=== PATIENT | male | born 1970 | race Caucasian/White ===

== ENCOUNTER 2018-09-10 13:33 | Observation (INO) ==
[2018-09-10] MEDS ORDERED: Isovue-370 500 ML BOTTLE IVP ONE ×2 (13:53→14:35)
[2018-09-10] MEDS ORDERED: Nitroglycerin 0.4 MG TAB.SUBL SL PRN (13:59)
[2018-09-10 14:17] LABS: Basophils # 0.1 K/mcL (0.0-0.2); Basophils % 0.6 %; Eosinophils # 0.2 K/mcL (0.0-0.6); Eosinophils % 2.4 %; Hematocrit 47.3 % (37.5-50.1); Hemoglobin 15.9 g/dL (12.9-16.9); Immature Granulocytes % 0.6 % (0-4); Lymphocytes # 2.4 K/mcL (0.6-4.6); Lymphocytes % 23.5 %; Mean Corpuscular HGB Conc 33.6 g/dL (31.6-35.5); Mean Corpuscular Hemoglobin 28.5 pg (28.0-33.3); Mean Corpuscular Volume 84.8 fL (83.0-100.0); Mean Platelet Volume 10.4 fL (9.4-12.4); Monocytes # 1.1 K/mcL (0.0-1.3); Monocytes % 10.9 %; Neutrophils # 6.3 K/mcL (1.6-8.9); Platelet Count 305 K/mcL (140-400); Red Blood Count 5.58 M/mcL (4.19-5.50); Red Cell Distribution Width 12.3 % (11.5-14.5)
[2018-09-10 14:23] LABS: Prothrombin Time 10.7 Seconds (9.4-12.1)
[2018-09-10 14:25] LABS: Activated Partial Thrombo Time 28.6 Seconds (26.0-36.0)
[2018-09-10 14:36] LABS: BUN/Creatinine Ratio 19 (6-26); Blood Urea Nitrogen 16 mg/dL (6-20); Calcium 10.5 mg/dL (8.6-10.3); Carbon Dioxide 28 mEq/L (23-29); Chloride 96 mEq/L (98-107); Glucose 224 mg/dL (70-105); Osmolality,Calculated 290 (280-300); Potassium 3.8 mEq/L (3.5-5.1); Sodium 136 mEq/L (136-145); Troponin I < 0.03 ng/mL (< 0.04); eGFR For Non-African Americans > 60 (> 60)
--- NOTE | 2018-09-10 14:49 | Emergency Department Note ---
Disposition Clinical Impression: Chest pain Disposition: Admitted As Inpatient Condition: Good Referrals: Daniel Mcnally DO [Primary Care Provider] - Forms: ED Satisfaction Letter Time of Disposition: 16:02 Chest Pain HPI - General Chief Complaint: ED Chest Pain Stated Complaint: Weakness,Chest Heaviness,HOLT,Jaw tightness Time Seen by Provider: 09/10/18 13:40 Source: patient Mode of arrival: ambulatory Limitations: no limitations Vital Signs Reviewed: Yes Nursing Notes Reviewed: Yes - History of Present Illness HPI Narrative: Patient presenting to the ED with the chief complaint of generalized weakness and chest pain. Patient reports this is been ongoing for several months, but is getting progressively worse. States the pain is more of a heaviness and discomfort in the center of his chest. He sometimes feels like his left arm gets weak. He gets very lightheaded like he is going to pass out and states he has fallen multiple times. He does get nauseated and sometimes diaphoretic. Denies any previous history of heart disease. He states that he was at graduation today in [place] and was walking up the stairs and suddenly became very ill and had worse pain than usual. States this was around 10 AM. States he still does not feel quite back to normal, but the pain has subsided. He denies any fever or chills. Denies any abdominal pain. No lower extremity numbness or weakness. No urinary complaints Severity scale (1-10): 5 - Related Data Previous Rx's Medication Instructions Recorded Acetaminophen/Butalbital/Caffe 1 each PO Q6HR #20 tablet 02/12/17 [Fioricet] Ondansetron ODT [Zofran ODT] 4 mg SL Q8HR #10 tab.rapdis 02/12/17 Doxycycline 100 mg PO BID #20 capsule 02/26/18 Mupirocin 1 gm TP BID #1 oin.pf.gracia 02/26/18 Allergies Allergy/AdvReac Type Severity Reaction Status Date / Time No Known Allergies Allergy Verified 02/12/17 17:54 Review of Systems: As reviewed in the HPI. All other systems reviewed are negative or normal. Chest Pain PMH - Past Medical History Medical history: Reports: diabetes, hyperlipidemia, hypertension Psychiatric history: Reports: no psych history - Social History Smoking Status: Never smoker Alcohol use: Reports: none Drug use: Reports: none Physical Exam CONSTITUTIONAL: [well appearing, alert and in no acute distress] EYES: [EOMI, clear conjunctiva, PERRLA] HENT: [Normocephalic, atraumatic, moist mucus membranes, normal oropharynx] NECK: [normal inspection, full ROM, trachea midline, no obvious swelling] PULMONARY: [normal lung sounds bilaterally, normal chest rise and fall, no respiratory distress or stridor, no wheezes, no rales, no rhonchi CARDIOVASCULAR: [Tachycardic rate, regular rhythm, normal heart sounds, no murmurs, distal extremities are warm and well perfused] GASTROINSTESTINAL: [soft, non-tender, non-rigid, non-distended, no guarding, no rebound, normal bowel sounds] GENITOURINARY/RECTAL: [deferred] NEUROLOGIC: [Alert, oriented x3, normal speech, moves all extremities] EXTREMITIES: [Normal inspection, full ROM, no tenderness, no pedal edema, normal capillary refill] MUSCULOSKELETAL: [no gross deformities, atraumatic] SKIN: [No cyanosis, no diaphoresis, normal color, warm, no rash] PSYCHIATRIC: [normal mood and affect] - General Limitations: no limitations General appearance: alert Course Course Narrative: Patient's workup does not show any acute abnormalities. He has multiple pulmonary nodules with a broad differential. However, patient will need to be admitted for chest pain rule out and further cardiac testing due to his heart score. Vital Signs Temperature 97.9 F 09/10/18 13:40 Pulse Rate 121 09/10/18 13:40 Respiratory Rate 16 09/10/18 13:40 Blood Pressure 158/99 09/10/18 13:40 O2 Sat by Pulse Oximetry 96 09/10/18 13:40 Temperature 97.9 F 09/10/18 13:40 Pulse Rate 117 09/10/18 15:15 Respiratory Rate 18 09/10/18 15:15 Blood Pressure 118/74 09/10/18 15:15 O2 Sat by Pulse Oximetry 93 09/10/18 15:15 Oxygen Delivery Oxygen Delivery Room Air Chest Pain - Medical Records Medical records reviewed: Yes I reviewed the patient's medical records. - Lab Data Lab results reviewed: Yes I reviewed the patient's lab results. Result diagrams: 09/10/18 13:41 09/10/18 13:41 Lab Results 0509/10/18 09/10/18 Range/Units 13:41 13:41 13:41 WBC 10.1 (4.3-11.1) K/mcL RBC 5.58 H (4.19-5.50) M/mcL Hgb 15.9 (12.9-16.9) g/dL Hct 47.3 (37.5-50.1) % MCV 84.8 (83.0-100.0) fL MCH 28.5 (28.0-33.3) pg MCHC 33.6 (31.6-35.5) g/dL RDW 12.3 (11.5-14.5) % Plt Count 305 (140-400) K/mcL MPV 10.4 (9.4-12.4) fL Immature Gran % 0.6 (0-4) % Seg Neutrophils % 62.0 % Lymphocytes % 23.5 % Monocytes % 10.9 % Eosinophils % 2.4 % Basophils % 0.6 % Neutrophils # 6.3 (1.6-8.9) K/mcL Lymphocytes # 2.4 (0.6-4.6) K/mcL Monocytes # 1.1 (0.0-1.3) K/mcL Eosinophils # 0.2 (0.0-0.6) K/mcL Basophils # 0.1 (0.0-0.2) K/mcL PT 10.7 (9.4-12.1) Seconds INR 1.0 APTT 28.6 (26.0-36.0) Seconds Sodium (136-145) mEq/L Potassium (3.5-5.1) mEq/L Chloride (98-107) mEq/L Carbon Dioxide (23-29) mEq/L BUN (6-20) mg/dL Creatinine (0.70-1.30) mg/dL Est GFR ( Amer) (> 60) Est GFR (Non-Af Amer) (> 60) BUN/Creatinine Ratio (6-26) Glucose (70-105) mg/dL Calculated Osmolality (280-300) Calcium (8.6-10.3) mg/dL Troponin I (< 0.04) ng/mL B-Natriuretic Peptide 8 (Less than 100) pg/mL Urine Color (Yellow) Urine Clarity (Clear) Urine pH (5.0-8.0) pH Units Ur Specific [place] (1.010-1.025) Urine Protein (Neg-Trace) mg/dL Urine Glucose (UA) (Normal) mg/dL Urine Ketones (Negative) mg/dL Urine Blood (Negative) Urine Nitrite (Negative) Urine Bilirubin (Negative) Urine Urobilinogen (Normal) mg/dL Ur Leukocyte Esterase (Negative) Ur Culture Indicated? (NO) 09/10/18 09/10/18 Range/Units 13:41 15:00 WBC (4.3-11.1) K/mcL RBC (4.19-5.50) M/mcL Hgb (12.9-16.9) g/dL Hct (37.5-50.1) % MCV (83.0-100.0) fL MCH (28.0-33.3) pg MCHC (31.6-35.5) g/dL RDW (11.5-14.5) % Plt Count (140-400) K/mcL MPV (9.4-12.4) fL Immature Gran % (0-4) % Seg Neutrophils % % Lymphocytes % % Monocytes % % Eosinophils % % Basophils % % Neutrophils # (1.6-8.9) K/mcL Lymphocytes # (0.6-4.6) K/mcL Monocytes # (0.0-1.3) K/mcL Eosinophils # (0.0-0.6) K/mcL Basophils # (0.0-0.2) K/mcL PT (9.4-12.1) Seconds INR APTT (26.0-36.0) Seconds Sodium 136 (136-145) mEq/L Potassium 3.8 (3.5-5.1) mEq/L Chloride 96 L (98-107) mEq/L Carbon Dioxide 28 (23-29) mEq/L BUN 16 (6-20) mg/dL Creatinine 0.86 (0.70-1.30) mg/dL Est GFR ( Amer) > 60 (> 60) Est GFR (Non-Af Amer) > 60 (> 60) BUN/Creatinine Ratio 19 (6-26) Glucose 224 H (70-105) mg/dL Calculated Osmolality 290 (280-300) Calcium 10.5 H (8.6-10.3) mg/dL Troponin I < 0.03 (< 0.04) ng/mL B-Natriuretic Peptide (Less than 100) pg/mL Urine Color Yellow (Yellow) Urine Clarity Clear (Clear) Urine pH 5.5 (5.0-8.0) pH Units Ur Specific [place] 1.026 H (1.010-1.025) Urine Protein Negative (Neg-Trace) mg/dL Urine Glucose (UA) >=1000 H (Normal) mg/dL Urine Ketones Trace H (Negative) mg/dL Urine Blood Negative (Negative) Urine Nitrite Negative (Negative) Urine Bilirubin Negative (Negative) Urine Urobilinogen Normal (Normal) mg/dL Ur Leukocyte Esterase Negative (Negative) Ur Culture Indicated? NO (NO) - Radiology Data Radiology results reviewed: Yes I reviewed the patient's radiology results. - EKG Data EKG attestation: Yes I reviewed and interpreted this EKG. EKG results narrative: Sinus tach, rate 122, left axis deviation, no acute ischemic change Heart Score - Score History: Moderately Suspicious EKG: Non Specific repolarisation Disturbance Age: 45-65 Risk Factors: Equal/Greater than 3 risk factor or history of atherosclerotic disease Troponin: Less than normal limit HEART Score Total: 5
[2018-09-10 15:11] LABS: Bilirubin,Urine Negative (Negative); Blood,Urine Negative (Negative); Clarity,Urine Clear (Clear); Color,Urine Yellow (Yellow); Glucose,Urine (UA) >=1000 mg/dL (Normal); Ketones,Urine Trace mg/dL (Negative); Leukocyte Esterase,Urine Negative (Negative); Nitrite,Urine Negative (Negative); PH,Urine 5.5 pH Units (5.0-8.0); Protein,Urine Negative (Neg-Trace); Specific Gravity,Urine 1.026 (1.010-1.025); Urobilinogen,Urine Normal (Normal)
--- NOTE | 2018-09-10 17:08 | Emergency Department Note ---
Disposition Clinical Impression: Chest pain Disposition: Admitted As Inpatient Condition: Good Time of Disposition: 17:08 General Adult HPI - General Chief complaint: ED Chest Pain Stated complaint: Weakness,Chest Heaviness,HOLT,Jaw tightness Time Seen by Provider: 09/10/18 13:40 Source: patient Mode of arrival: ambulatory Limitations: no limitations - History of Present Illness Pain Scale: 4 - Related Data Previous Rx's Medication Instructions Recorded Acetaminophen/Butalbital/Caffe 1 each PO Q6HR #20 tablet 02/12/17 [Fioricet] Ondansetron ODT [Zofran ODT] 4 mg SL Q8HR #10 tab.rapdis 02/12/17 Doxycycline 100 mg PO BID #20 capsule 02/26/18 Mupirocin 1 gm TP BID #1 oin.pf.gracia 02/26/18 Allergies Allergy/AdvReac Type Severity Reaction Status Date / Time No Known Allergies Allergy Verified 02/12/17 17:54 Past Medical History - Past Medical History Medical history: Reports: diabetes, hyperlipidemia, hypertension Psychiatric history: Reports: no psych history - Social History Smoking Status: Never smoker Smokeless Tobacco Status: No Alcohol use: Reports: none Drug use: Reports: none Physical Exam - General Limitations: no limitations General appearance: alert Course Vital Signs Temperature 97.9 F 09/10/18 13:40 Pulse Rate 121 09/10/18 13:40 Respiratory Rate 16 09/10/18 13:40 Blood Pressure 158/99 09/10/18 13:40 O2 Sat by Pulse Oximetry 96 09/10/18 13:40 Temperature 97.9 F 09/10/18 13:40 Pulse Rate 120 09/10/18 16:19 Respiratory Rate 19 09/10/18 16:19 Blood Pressure 113/57 09/10/18 16:19 O2 Sat by Pulse Oximetry 94 09/10/18 16:19 Oxygen Delivery Oxygen Delivery Room Air Medical Decision Making - Lab Data Result diagrams: 09/10/18 13:41 09/10/18 13:41 Lab Results 09/10/18 09/10/18 09/10/18 Range/Units 13:41 13:41 13:41 WBC 10.1 (4.3-11.1) K/mcL RBC 5.58 H (4.19-5.50) M/mcL Hgb 15.9 (12.9-16.9) g/dL Hct 47.3 (37.5-50.1) % MCV 84.8 (83.0-100.0) fL MCH 28.5 (28.0-33.3) pg MCHC 33.6 (31.6-35.5) g/dL RDW 12.3 (11.5-14.5) % Plt Count 305 (140-400) K/mcL MPV 10.4 (9.4-12.4) fL Immature Gran % 0.6 (0-4) % Seg Neutrophils % 62.0 % Lymphocytes % 23.5 % Monocytes % 10.9 % Eosinophils % 2.4 % Basophils % 0.6 % Neutrophils # 6.3 (1.6-8.9) K/mcL Lymphocytes # 2.4 (0.6-4.6) K/mcL Monocytes # 1.1 (0.0-1.3) K/mcL Eosinophils # 0.2 (0.0-0.6) K/mcL Basophils # 0.1 (0.0-0.2) K/mcL PT 10.7 (9.4-12.1) Seconds INR 1.0 APTT 28.6 (26.0-36.0) Seconds Sodium (136-145) mEq/L Potassium (3.5-5.1) mEq/L Chloride (98-107) mEq/L Carbon Dioxide (23-29) mEq/L BUN (6-20) mg/dL Creatinine (0.70-1.30) mg/dL Est GFR ( Amer) (> 60) Est GFR (Non-Af Amer) (> 60) BUN/Creatinine Ratio (6-26) Glucose (70-105) mg/dL Calculated Osmolality (280-300) Calcium (8.6-10.3) mg/dL Troponin I (< 0.04) ng/mL B-Natriuretic Peptide 8 (Less than 100) pg/mL Urine Color (Yellow) Urine Clarity (Clear) Urine pH (5.0-8.0) pH Units Ur Specific [place] (1.010-1.025) Urine Protein (Neg-Trace) mg/dL Urine Glucose (UA) (Normal) mg/dL Urine Ketones (Negative) mg/dL Urine Blood (Negative) Urine Nitrite (Negative) Urine Bilirubin (Negative) Urine Urobilinogen (Normal) mg/dL Ur Leukocyte Esterase (Negative) Ur Culture Indicated? (NO) 09/10/18 09/10/18 Range/Units 13:41 15:00 WBC (4.3-11.1) K/mcL RBC (4.19-5.50) M/mcL Hgb (12.9-16.9) g/dL Hct (37.5-50.1) % MCV (83.0-100.0) fL MCH (28.0-33.3) pg MCHC (31.6-35.5) g/dL RDW (11.5-14.5) % Plt Count (140-400) K/mcL MPV (9.4-12.4) fL Immature Gran % (0-4) % Seg Neutrophils % % Lymphocytes % % Monocytes % % Eosinophils % % Basophils % % Neutrophils # (1.6-8.9) K/mcL Lymphocytes # (0.6-4.6) K/mcL Monocytes # (0.0-1.3) K/mcL Eosinophils # (0.0-0.6) K/mcL Basophils # (0.0-0.2) K/mcL PT (9.4-12.1) Seconds INR APTT (26.0-36.0) Seconds Sodium 136 (136-145) mEq/L Potassium 3.8 (3.5-5.1) mEq/L Chloride 96 L (98-107) mEq/L Carbon Dioxide 28 (23-29) mEq/L BUN 16 (6-20) mg/dL Creatinine 0.86 (0.70-1.30) mg/dL Est GFR ( Amer) > 60 (> 60) Est GFR (Non-Af Amer) > 60 (> 60) BUN/Creatinine Ratio 19 (6-26) Glucose 224 H (70-105) mg/dL Calculated Osmolality 290 (280-300) Calcium 10.5 H (8.6-10.3) mg/dL Troponin I < 0.03 (< 0.04) ng/mL B-Natriuretic Peptide (Less than 100) pg/mL Urine Color Yellow (Yellow) Urine Clarity Clear (Clear) Urine pH 5.5 (5.0-8.0) pH Units Ur Specific [place] 1.026 H (1.010-1.025) Urine Protein Negative (Neg-Trace) mg/dL Urine Glucose (UA) >=1000 H (Normal) mg/dL Urine Ketones Trace H (Negative) mg/dL Urine Blood Negative (Negative) Urine Nitrite Negative (Negative) Urine Bilirubin Negative (Negative) Urine Urobilinogen Normal (Normal) mg/dL Ur Leukocyte Esterase Negative (Negative) Ur Culture Indicated? NO (NO) Attestation Statement - Attestation Attestation: I examined this patient and my medical decision-making was reviewed with the Resident Physician. I agree with the documented findings, disposition and treatment plan as described except to the extent set forth below. 47 year old male presents to the ED with complaints of chest pain and weakness and palpitations with moderate heart score. CTA chest shows mulitple pilmonary noduels and HCT is othewise negative. We will admit to medicine for CP r/o ACS workup, negative trop, non ishcemic ekg although sinus tachycardia has improved from 120 to 105.
[2018-09-10] MEDS ORDERED: Naloxone 0.4 MG/ML INJ IVP PRN (17:10)
--- NOTE | 2018-09-10 17:12 | Internal Med History&Physical ---
Date of Encounter: 09/10/18 Time of Encounter: 17:00 Internal Medicine - H&P: HPI Chief complaint: Chest heaviness/fluttering Admitted From: Home Plans for Post Hospital Care: Home History of present illness: Patient is a 47-year-old male with past medical history significant for uncontrolled diabetes (hemoglobin A1c 10) hypertension, diabetes, hyperlipidemia, former [id number] smoker (quit 2011) and [employer] pacemaker (2011) who presents to the ER due to chest heaviness/palpitations. Patient reports a two-month history of intermittent fluttering in his chest which has progressively gotten worse in the last week. Patient reports that today while walking up steps at a graduation of experiencing substernal chest heaviness which radiated down his left arm with associated symptoms of nausea and shortness of breath. Patient reports that exertion made chest pressure worse and nothing gave any relief. Patient was concerned so decided come to the ER for evaluation. In the ER, first set of troponins were negative. He was found to have sinus tachycardia. Patient will be admitted to medical surgical observation unit for ACS rule out. Past Med Surg Social Fam HX - Past Medical History Medical history: diabetes, hyperlipidemia, hypertension Psychiatric history: no psych history - Past Surgical History Additional surgical history: fusion surgery on back, cysts removed from back, right wrist surgery - Social History Smoking Status: Never smoker Smokeless Tobacco Status: No Alcohol use: none Drug use: none - Additional Family History Additional family history: Paternal/maternal grandparents coronary artery disease Internal Medicine - H&P: Meds Acetaminophen/Butalbital/Caffe [Fioricet] 1 each PO Q6HR #20 tablet 02/12/17 [Rx] Ondansetron ODT [Zofran ODT] 4 mg SL Q8HR #10 tab.rapdis 02/12/17 [Rx] Doxycycline 100 mg PO BID #20 capsule 02/26/18 [Rx] Mupirocin 1 gm TP BID #1 oin.pf.gracia 02/26/18 [Rx] Allergy/AdvReac Type Severity Reaction Status Date / Time No Known Allergies Allergy Verified 02/12/17 17:54 All Systems PM: A 10-system review of systems was performed and is negative for pertinent f indings except as documented above in the HPI. - Constitutional Vitals: Temp Pulse Resp BP Pulse Ox 97.9 F 120 19 113/57 94 05/25/19 13:40 09/10/18 16:19 09/10/18 16:19 09/10/18 16:19 09/10/18 16:19 Exam: General appearance: Present: A&O X 3, no acute distress - Head Head exam: Present: normocephalic - Eye Eye exam: Present: normal appearance - ENT ENT exam: Present: mucous membranes moist - Respiratory Respiratory exam: Present: CTAB. Absent: accessory muscle use, rales, rhonchi, wheezes - Cardiovascular Cardiovascular exam: Present: Tachycardia but no murmurs rubs or gallops - GI/Abdominal GI/Abdominal exam: Present: normal bowel sounds, soft, no peritoneal signs. Absent: distended, tenderness - Extremities Exam Extremities exam: Absent: pedal edema - Neurological Exam Neurological exam: Present: alert, oriented X3, no focal deficits. Absent: altered - Psychiatric Psychiatric exam: -normal mood Skin exam: -normal color Internal Med - H&P Results - Labs CBC & Chem 7: 09/10/18 13:41 09/10/18 13:41 Labs: Short CBC 09/10/18 Range/Units 13:41 WBC 10.1 (4.3-11.1) K/mcL Hgb 15.9 (12.9-16.9) g/dL Hct 47.3 (37.5-50.1) % Plt Count 305 (140-400) K/mcL Neutrophils # 6.3 (1.6-8.9) K/mcL BMP 09/10/18 13:41 Sodium 136 Potassium 3.8 Chloride 96 L Carbon Dioxide 28 BUN 16 Creatinine 0.86 Glucose 224 H Calcium 10.5 H Cardiac Enzymes 09/10/18 Range/Units 13:41 Troponin I < 0.03 (< 0.04) ng/mL Urine 09/10/18 Range/Units 15:00 Urine Color Yellow (Yellow) Urine Clarity Clear (Clear) Urine pH 5.5 (5.0-8.0) pH Units Ur Specific [place] 1.026 H (1.010-1.025) Urine Protein Negative (Neg-Trace) mg/dL Urine Glucose (UA) >=1000 H (Normal) mg/dL - Impressions ITS Impressions Chest X-Ray 09/10/18 13:53 IMPRESSION: No acute cardiopulmonary process. D/ / 09/10/2018 14:26:29 Jerry Moreno MD / garo Interpreting Provider: Jerry Moreno MD Chest CTA 09/10/18 13:54 IMPRESSION: 1. No evidence for pulmonary embolism. 2. Innumerable subcentimeter bilateral pulmonary nodules throughout the lungs measuring up to 6 mm in greatest size. There is a broad differential diagnosis for diffuse pulmonary nodularity. Several differential considerations would include sarcoidosis, silicosis, and hypersensitivity pneumonitis amongst other etiologies. RECOMMENDATIONS: Fleischner Society guidelines for follow-up and management of incidentally detected pulmonary nodules: Multiple Solid Nodules: Nodule size equals 6-8 mm In a low-risk patient, CT at 3-6 months, then consider CT at 18-24 months. In a high-risk patient, CT at 3-6 months, then CT at 18-24 months. - Low risk patients include individuals with minimal or absent history of smoking and other known risk factors. - High risk patients include individuals with a history or smoking or known risk factors. Radiology 2017 http://pubs.rsna.org/doi/full/10.1148/radiol.[email or web address] D/ / Guanako Motley MD / Guanako Motley MD Interpreting Provider: Guanako Motley MD Head CT 09/10/18 14:49 IMPRESSION: No acute intracranial abnormality. D/ / Hugh Helms MD / Hugh Helms MD Interpreting Provider: Hugh Helms MD - Assessment and Plan (1) Chest pain Current Visit: Yes Status: Acute Assessment and plan: Patient with multiple risk factors including uncontrolled diabetes (hemoglobin A1c 10) hypertension, diabetes, hyperlipidemia, former [id number] smoker (quit 2011) and [employer] pacemaker (2011) who presents to the ER due to chest heaviness/palpitations. In the ER, first set of troponins were negative. He was found to have sinus tachycardia. Will trend serial troponins and monitor on telemetry Due to [employer] pacemaker will consult cardiology for recommendations Qualifiers: Chest pain type: unspecified Qualified Code(s): R07.9 - Chest pain, unspecified (2) HTN (hypertension) Current Visit: Yes Status: Acute Assessment and plan: Continue home meds Qualifiers: Hypertension type: unspecified Qualified Code(s): I10 - Essential (primary) hypertension (3) HLD (hyperlipidemia) Current Visit: Yes Status: Acute Assessment and plan: Continue home meds Qualifiers: Hyperlipidemia type: unspecified Qualified Code(s): E78.5 - Hyperlipidemia, unspecified (4) Diabetes Current Visit: Yes Status: Acute Assessment and plan: Continue SSI Qualifiers: Chronic kidney disease stage: unspecified stage Qualified Code(s): E08.22 - Diabetes mellitus due to underlying condition with diabetic chronic kidney disease; Z79.4 - MCFP (current) use of insulin (5) DVT prophylaxis Current Visit: Yes Status: Acute Assessment and plan: Heparin subcutaneous - Time Spent With Patient Total time spent is greater than 50% in coordination of care (as documented) at patient's floor/unit and/or counseling patient:
[2018-09-10] MEDS ORDERED: *HR* Dextrose 50 % in Water (Syg) 50 ML SYRINGE IVP PRN (21:07)
[2018-09-10] MEDS ORDERED: D5% in Water 1,000 ML IVC PRN (21:07)
[2018-09-10] MEDS ORDERED: Dextrose Gel 15 GM/37.5 ML TUBE PO PRN ×2 (21:07)
[2018-09-10] MEDS: Insulin LISPRO 300 UNITS/3 ML VIAL SQ SCH (22:15)
[2018-09-10] MEDS: *HR* Heparin 5,000 UNIT/ML VIAL SQ SCH (22:17)
[2018-09-11 00:46] LABS: Basophils # 0.1 K/mcL (0.0-0.2); Basophils % 0.6 %; Eosinophils # 0.3 K/mcL (0.0-0.6); Eosinophils % 3.5 %; Hematocrit 43.6 % (37.5-50.1); Hemoglobin 14.7 g/dL (12.9-16.9); Immature Granulocytes % 0.4 % (0-4); Lymphocytes # 3.1 K/mcL (0.6-4.6); Lymphocytes % 32.7 %; Mean Corpuscular HGB Conc 33.7 g/dL (31.6-35.5); Mean Corpuscular Hemoglobin 28.3 pg (28.0-33.3); Mean Corpuscular Volume 83.8 fL (83.0-100.0); Mean Platelet Volume 10.3 fL (9.4-12.4); Monocytes # 1.1 K/mcL (0.0-1.3); Monocytes % 11.2 %; Neutrophils # 4.8 K/mcL (1.6-8.9); Platelet Count 261 K/mcL (140-400); Red Cell Distribution Width 12.3 % (11.5-14.5); Segmented Neutrophils % 51.6 %
[2018-09-11 01:06] LABS: BUN/Creatinine Ratio 19 (6-26); Blood Urea Nitrogen 16 mg/dL (6-20); Calcium 9.2 mg/dL (8.6-10.3); Carbon Dioxide 27 mEq/L (23-29); Chloride 98 mEq/L (98-107); Glucose 239 mg/dL (70-105); Osmolality,Calculated 291 (280-300); Potassium 3.2 mEq/L (3.5-5.1); Sodium 136 mEq/L (136-145); eGFR For Non-African Americans > 60 (> 60)
[2018-09-11] MEDS: *HR* Heparin 5,000 UNIT/ML VIAL SQ SCH ×3 (05:23→22:19)
[2018-09-11 06:57] LABS: Estimated Average Glucose 240 mg/dl
[2018-09-11] MEDS: Insulin LISPRO 300 UNITS/3 ML VIAL SQ SCH ×4 (08:57→21:09)
[2018-09-11] MEDS ORDERED: Acetaminophen 325 MG TABLET PO ONE (09:32)
[2018-09-11] MEDS ORDERED: Regadenoson 0.4 MG/5 ML SYRINGE IVP ONE (10:54)
--- NOTE | 2018-09-11 14:38 | Electrocardiograph Report ---
[address] [address] Test Date: 2018-09-10 Pat Name: Emile Witt Department: [id number] Room: 3B38 Gender: M Resin Shaver: : 1970 Requested By: Daniel Bey Order Number: [id number] Reading MD: David Gong Measurements Intervals [place] Rate: 122 P: 35 FL: 181 QRS: -18 QRSD: 110 T: -31 QT: 302 QTc: 431 Interpretive Statements Sinus tachycardia Diffuse artifacts Probable left atrial enlargement Low voltage, precordial leads Borderline T abnormalities, diffuse leads Electronically Signed On 09-11-2018 14:37:06 EDT by David Gong
--- NOTE | 2018-09-11 17:56 | Internal Med Progress Note ---
Hospitalist Progress Note - Encounter Date of Encounter: 09/11/18 Time of Encounter: 11:00 - Subjective Interval History: Patient is a 47-year-old male with past medical history significant for uncontrolled diabetes (hemoglobin A1c 10) hypertension, diabetes, hyperlipidemia, former [id number] smoker (quit 2011) and [employer] pacemaker (2011) who presents to the ER due to chest heaviness/palpitations. Patient still reporting some chest heaviness today. Patient's troponins were negative however he did have a positive stress test. - Exam Vitals: Temp Pulse Resp BP Pulse Ox 97.9 F 115 18 144/94 96 09/11/18 16:16 09/11/18 16:16 09/11/18 16:16 09/11/18 16:16 09/11/18 16:16 Exam: Gen.: Nonacute distress, alert and oriented 3 ENT: Mucosal membranes moist Respiratory: Lungs are clear to auscultation bilaterally without any wheezing rhonchi or rales Cardiovascular: Normal S1 and S2 regular rate rhythm no murmurs rubs or gallops Abdomen: Soft, nontender and nondistended with positive bowel sounds Extremities: No lower extremity edema Skin: Normal color - Assessment and Plan (1) Chest pain Current Visit: Yes Status: Acute Assessment and Plan: Patient with multiple risk factors including uncontrolled diabetes (hemoglobin A1c 10) hypertension, diabetes, hyperlipidemia, former [id number] smoker (quit 2011) and [employer] pacemaker (2011) who presents to the ER due to chest heaviness/palpitations. Troponins have been negative however patient found to have a positive stress test with perfusion imaging that was positive for ischemia; echocardiogram pending Cardiology consulted and patient will be made nothing by mouth in case of heart catheterization in the morning (2) HTN (hypertension) Current Visit: Yes Status: Acute Assessment and Plan: Continue home meds (3) HLD (hyperlipidemia) Current Visit: Yes Status: Acute Assessment and Plan: Continue home meds (4) Diabetes Current Visit: Yes Status: Acute Assessment and Plan: Continue SSI DVT Prophylaxis: Heparin subcutaneous - Time Spent with Patient Total time spent is greater than 50% in coordination of care (as documented) at patient's floor/unit and/or counseling patient: Internal Medicine: Result - Labs CBC & Chem 7: 09/11/18 00:14 09/11/18 00:14 Labs: Short CBC 09/11/18 Range/Units 00:14 WBC 9.4 (4.3-11.1) K/mcL Hgb 14.7 (12.9-16.9) g/dL Hct 43.6 (37.5-50.1) % Plt Count 261 (140-400) K/mcL Neutrophils # 4.8 (1.6-8.9) K/mcL BMP 09/11/18 00:14 Sodium 136 Potassium 3.2 L Chloride 98 Carbon Dioxide 27 BUN 16 Creatinine 0.84 Glucose 239 H Calcium 9.2 Cardiac Enzymes 09/10/18 09/11/18 09/11/18 Range/Units 17:38 00:14 04:35 Troponin I < 0.03 < 0.03 < 0.03 (< 0.04) ng/mL - ABG Interpretation ABG results: PT/INR, D-dimer PT 10.7 Seconds (9.4-12.1) 09/10/18 13:41 - Impressions Impressions Echocardiogram 09/11/18 12:00 Impressions: LVEF 50-55%. Normal LV chamber size, wall thickness and function. Normal left ventricular diastolic function. Normal right ventricular structure and function. No evidence of pulmonary hypertension. No significant valvular dysfunction Left Ventricular Wall Motion: Rest Echo Findings The mid inferior lateral wall was not visualized. All other wall segments showed normal motion. Findings: Study Quality * Technically adequate exam. ECG Findings * Normal sinus rhythm. Left Ventricle * LVEF 50-55%. * Normal LV chamber size, wall thickness and function. * Normal left ventricular diastolic function. Right Ventricle * Normal right ventricular structure and function. Left Atrium * Normal left atrial size. Right Atrium * Normal right atrial size. Aortic Valve * Aortic valve not well visualized. * No aortic regurgitation. * No aortic stenosis. Mitral Valve * No mitral stenosis. * Normal mitral valve structure. * Trace mitral regurgitation. Tricuspid Valve * No tricuspid stenosis. * Trace tricuspid regurgitation. * Normal tricuspid valve structure. * No evidence of pulmonary hypertension. Pulmonic Valve * Pulmonic valve not well visualized. Aorta * Normally sized aortic root. Pericardium * The pericardium appears normal. IVC * The IVC is not well evaluated. Pulmonary Artery * Pulmonary artery not well visualized. Consult Discharge Plan - Plan Referrals: Daniel Mcnally DO [Primary Care Provider] - (1) Chest pain Qualifiers: Chest pain type: unspecified Qualified Code(s): R07.9 - Chest pain, unspecified (2) HTN (hypertension) Qualifiers: Hypertension type: unspecified Qualified Code(s): I10 - Essential (primary) hypertension (3) HLD (hyperlipidemia) Qualifiers: Hyperlipidemia type: unspecified Qualified Code(s): E78.5 - Hyperlipidemia, unspecified (4) Diabetes Qualifiers: Chronic kidney disease stage: unspecified stage Qualified Code(s): E08.22 - Diabetes mellitus due to underlying condition with diabetic chronic kidney disease; Z79.4 - [facility] (current) use of insulin
[2018-09-12] MEDS: *HR* Heparin 5,000 UNIT/ML VIAL SQ SCH ×3 (05:51→20:35)
[2018-09-12] MEDS ORDERED: Acetaminophen 325 MG TABLET PO ONE (05:56)
[2018-09-12] MEDS: Insulin LISPRO 300 UNITS/3 ML VIAL SQ SCH ×4 (09:00→20:35)
--- NOTE | 2018-09-12 09:21 | Cardiology Consult Note ---
Date of Encounter: 09/12/18 Time of Encounter: 09:20 Assessment and Plan (1) Chest pain Current Visit: Yes Status: Acute Per Cardiology: Troponins negative 4. Echo showed preserved EF 50-55%, normal diastolic function, normal RV structure and function, no evidence of pulmonary hypertension, no significant valvular dysfunction. Reports history of non obstructive CAD on catheterization many years ago at outside facility prior to pacemaker insertion. Currently chest pain-free. Qualifiers: Chest pain type: unspecified Qualified Code(s): R07.9 - Chest pain, unspecified (2) Abnormal nuclear stress test Current Visit: Yes Status: Acute Per Cardiology: Non-exercise nuclear stress test showed positive for ischemia with small perfusion defect to mid inferior lateral; SDS 2. Results reviewed and discussed with patient and he prefers to proceed with catheterization. Plan for catheterization tomorrow, all questions answered. Discussed and reviewed with Dr. Lou Osuna. Discussion w patient/family: The assessment and plan as outlined above was discussed with the patient and/or family members who expressed understanding and agreement. All questions were answered. Thank you for involving us in the care of your patient. Please call with any questions. History of Present Illness Consult date: 09/12/18 Consult reason: +ST Chief complaint: CP History of present illness: Mr. Witt is a 47 year old male with a relevant past medical history of HTN, HLD, DM 2, and pacemaker. Cardiology consult for positive nuclear stress test. Past Med Surg Social Fam HX - Past Medical History Attestation: Yes The following information was validated with the patient. Source: patient, old records reviewed Medical history: diabetes, hyperlipidemia, hypertension Additional medical history: SLEEP APNEA. NUEROPATHY Psychiatric history: no psych history - Past Surgical History Surgical History: pacemaker Additional surgical history: fusion surgery on back, cysts removed from back, right wrist surgery - Social History Smoking Status: Never smoker Smokeless Tobacco Status: No Alcohol use: none Drug use: none - Family History Father Hx Family Cardiac Disorders: Yes Mother Hx Family Cardiac Disorders: Yes (HTN) Medications and Allergies Allergy/AdvReac Type Severity Reaction Status Date / Time No Known Allergies Allergy Verified 02/12/17 17:54 All Systems Review: The remainder of the systems were reviewed and are negative - Cardiovascular Cardiovascular: as per HPI Physical Examination Vital Signs, Last 4 Hours Temp Pulse Resp BP Pulse Ox 09/12/18 08:02 98.0 F 92 14 137/83 96 General: Conversant, No Apparent Distress HEENT: Atraumatic, Normocephaly, Mucus Membranes Moist Neck: No JVD, Normal carotid pulses Cardiac: Reg Rate and Rhythm, Normal S1 and S2, No Murmur Lungs: Normal Breath Sounds, No Wheeze, Rales, Rhonchi Neuro: Alert and responsive, No focal deficits noted Abdomen: Soft, Non-Tender Skin: No rashes noted on visualized skin Musculoskeletal: No Chest Wall Tenderness Extremities: No Clubbing, No Cyanosis, No Edema, Normal Pulses Results 09/11/18 00:14 09/11/18 00:14 Laboratory Tests 09/10/18 09/10/18 09/10/18 13:41 13:41 13:41 Hgb Hct INR 1.0 Potassium Creatinine Est GFR (Non-Af Amer) Troponin I < 0.03 B-Natriuretic Peptide 8 09/10/18 09/11/18 09/11/18 17:38 00:14 00:14 Hgb 14.7 Hct 43.6 INR Potassium 3.2 L Creatinine 0.84 Est GFR (Non-Af Amer) > 60 Troponin I < 0.03 B-Natriuretic Peptide 09/11/18 09/11/18 00:14 04:35 Hgb Hct INR Potassium Creatinine Est GFR (Non-Af Amer) Troponin I < 0.03 < 0.03 B-Natriuretic Peptide ITS Impressions Chest X-Ray 09/10/18 13:53 IMPRESSION: No acute cardiopulmonary process. D/ / 09/10/2018 14:26:29 Jerry Moreno MD / garo Interpreting Provider: Jerry Moreno MD Chest CTA 09/10/18 13:54 IMPRESSION: 1. No evidence for pulmonary embolism. 2. Innumerable subcentimeter bilateral pulmonary nodules throughout the lungs measuring up to 6 mm in greatest size. There is a broad differential diagnosis for diffuse pulmonary nodularity. Several differential considerations would include sarcoidosis, silicosis, and hypersensitivity pneumonitis amongst other etiologies. RECOMMENDATIONS: Fleischner Society guidelines for follow-up and management of incidentally detected pulmonary nodules: Multiple Solid Nodules: Nodule size equals 6-8 mm In a low-risk patient, CT at 3-6 months, then consider CT at 18-24 months. In a high-risk patient, CT at 3-6 months, then CT at 18-24 months. - Low risk patients include individuals with minimal or absent history of smoking and other known risk factors. - High risk patients include individuals with a history or smoking or known risk factors. Radiology 2017 http://pubs.rsna.org/doi/full/10.1148/radiol.[email or web address] D/ / Guanako Motley MD / Guanako Motley MD Interpreting Provider: Guanako Motley MD Head CT 09/10/18 14:49 IMPRESSION: No acute intracranial abnormality. D/ / Hugh Helms MD / Hugh Helms MD Interpreting Provider: Hugh Helms MD Echocardiogram 09/11/18 12:00 Impressions: LVEF 50-55%. Normal LV chamber size, wall thickness and function. Normal left ventricular diastolic function. Normal right ventricular structure and function. No evidence of pulmonary hypertension. No significant valvular dysfunction Left Ventricular Wall Motion: Rest Echo Findings The mid inferior lateral wall was not visualized. All other wall segments showed normal motion. Findings: Study Quality * Technically adequate exam. ECG Findings * Normal sinus rhythm. Left Ventricle * LVEF 50-55%. * Normal LV chamber size, wall thickness and function. * Normal left ventricular diastolic function. Right Ventricle * Normal right ventricular structure and function. Left Atrium * Normal left atrial size. Right Atrium * Normal right atrial size. Aortic Valve * Aortic valve not well visualized. * No aortic regurgitation. * No aortic stenosis. Mitral Valve * No mitral stenosis. * Normal mitral valve structure. * Trace mitral regurgitation. Tricuspid Valve * No tricuspid stenosis. * Trace tricuspid regurgitation. * Normal tricuspid valve structure. * No evidence of pulmonary hypertension. Pulmonic Valve * Pulmonic valve not well visualized. Aorta * Normally sized aortic root. Pericardium * The pericardium appears normal. IVC * The IVC is not well evaluated. Pulmonary Artery * Pulmonary artery not well visualized. Active Medications Dextrose/Water (Dextrose 50% (Syg)) 25 ml IVP AD PRN PRN Reason: Hypoglycemia Stop: 03/12/19 21:08 Glucagon (Glucagen) 1 mg IM ONCE PRN PRN Reason: Hypoglycemia Stop: 03/12/19 21:08 Glucose (Gluctose) 15 gm PO ONCE PRN PRN Reason: Hypoglycemia Stop: 03/12/19 21:08 Glucose (Gluctose) 30 gm PO ONCE PRN PRN Reason: Hypoglycemia Stop: 03/12/19 21:08 Heparin Sodium (Porcine) (Heparin) 5,000 unit SQ Q8HCO FABBY Stop: 03/12/19 22:01 Last Admin: 09/12/18 05:51 Dose: 5,000 unit Documented by: Dextrose (Dextrose 5%) 1,000 mls @ 100 mls/hr IVC .Q10H PRN PRN Reason: HYPOGLYCEMIA Stop: 03/12/19 21:08 Insulin Human Lispro (Humalog) 0 units SQ TIDAC [facility]; Protocol Stop: 03/13/19 07:31 Last Admin: 09/12/18 09:00 Dose: 4 units Documented by: Insulin Human Lispro (Humalog) 0 units SQ [facility]; Protocol Stop: 03/12/19 21:16 Last Admin: 09/11/18 21:09 Dose: Not Given Documented by: Naloxone HCl (Narcan) 0.4 mg IVP Q2MPRN PRN PRN Reason: SEE COMMENTS Stop: 03/12/19 17:11 Nitroglycerin (Nitroglycerin) 0.4 mg SL Q5MPRN PRN PRN Reason: Chest Pain Stop: 03/12/19 14:00 - Imaging and Cardiology Stress Test: report reviewed Echo: report reviewed - EKG Interpretation EKG results cardiology: personally reviewed Consult Discharge Plan - Plan Referrals: Daniel Mcnally DO [Primary Care Provider] -
--- NOTE | 2018-09-12 11:26 | Internal Med Progress Note ---
Hospitalist Progress Note - Encounter Date of Encounter: 09/12/18 Time of Encounter: 11:00 - Subjective Interval History: Patient is a 47-year-old male with past medical history significant for uncontrolled diabetes (hemoglobin A1c 10) hypertension, diabetes, hyperlipidemia, former [id number] smoker (quit 2011) and [employer] pacemaker (2011) who presents to the ER due to chest heaviness/palpitations. Patient's troponins were negative however he did have a positive stress test. Plans for left heart catheterization on 09/13/18 - Exam Vitals: Temp Pulse Resp BP Pulse Ox 98.0 F 92 14 137/83 96 09/12/18 08:02 09/12/18 08:02 09/12/18 08:02 09/12/18 08:02 09/12/18 10:02 Exam: Gen.: Nonacute distress, alert and oriented 3 ENT: Mucosal membranes moist Respiratory: Lungs are clear to auscultation bilaterally without any wheezing rh onchi or rales Cardiovascular: Normal S1 and S2 regular rate rhythm no murmurs rubs or gallops Abdomen: Soft, nontender and nondistended with positive bowel sounds Extremities: No lower extremity edema Skin: Normal color - Assessment and Plan (1) Chest pain Current Visit: Yes Status: Acute Assessment and Plan: Patient with multiple risk factors including uncontrolled diabetes (hemoglobin A1c 10) hypertension, diabetes, hyperlipidemia, former [id number] smoker (quit 2011) and [employer] pacemaker (2011) who presents to the ER due to chest heaviness/palpitations. Troponins have been negative however patient found to have a positive stress test with perfusion imaging that was positive for ischemia; echocardiogram pending Cardiology consulted with plans for a left heart catheterization in the morning (2) HTN (hypertension) Current Visit: Yes Status: Acute Assessment and Plan: Continue home meds (3) HLD (hyperlipidemia) Current Visit: Yes Status: Acute Assessment and Plan: Continue home meds (4) Diabetes Current Visit: Yes Status: Acute Assessment and Plan: Continue SSI DVT Prophylaxis: Heparin subcutaneous - Time Spent with Patient Total time spent is greater than 50% in coordination of care (as documented) at patient's floor/unit and/or counseling patient: Internal Medicine: Result - Labs CBC & Chem 7: 09/11/18 00:14 09/11/18 00:14 - ABG Interpretation ABG results: PT/INR, D-dimer PT 10.7 Seconds (9.4-12.1) 09/10/18 13:41 - Impressions Impressions Echocardiogram 09/11/18 12:00 Impressions: LVEF 50-55%. Normal LV chamber size, wall thickness and function. Normal left ventricular diastolic function. Normal right ventricular structure and function. No evidence of pulmonary hypertension. No significant valvular dysfunction Left Ventricular Wall Motion: Rest Echo Findings The mid inferior lateral wall was not visualized. All other wall segments showed normal motion. Findings: Study Quality * Technically adequate exam. ECG Findings * Normal sinus rhythm. Left Ventricle * LVEF 50-55%. * Normal LV chamber size, wall thickness and function. * Normal left ventricular diastolic function. Right Ventricle * Normal right ventricular structure and function. Left Atrium * Normal left atrial size. Right Atrium * Normal right atrial size. Aortic Valve * Aortic valve not well visualized. * No aortic regurgitation. * No aortic stenosis. Mitral Valve * No mitral stenosis. * Normal mitral valve structure. * Trace mitral regurgitation. Tricuspid Valve * No tricuspid stenosis. * Trace tricuspid regurgitation. * Normal tricuspid valve structure. * No evidence of pulmonary hypertension. Pulmonic Valve * Pulmonic valve not well visualized. Aorta * Normally sized aortic root. Pericardium * The pericardium appears normal. IVC * The IVC is not well evaluated. Pulmonary Artery * Pulmonary artery not well visualized. Consult Discharge Plan - Plan Referrals: Daniel Mcnally DO [Primary Care Provider] - (1) Chest pain Qualifiers: Chest pain type: unspecified Qualified Code(s): R07.9 - Chest pain, unspecified (2) HTN (hypertension) Qualifiers: Hypertension type: unspecified Qualified Code(s): I10 - Essential (primary) hypertension (3) HLD (hyperlipidemia) Qualifiers: Hyperlipidemia type: unspecified Qualified Code(s): E78.5 - Hyperlipidemia, unspecified (4) Diabetes Qualifiers: Chronic kidney disease stage: unspecified stage
[2018-09-13] MEDS: *HR* Heparin 5,000 UNIT/ML VIAL SQ SCH ×2 (06:05→15:58)
[2018-09-13] MEDS: Insulin LISPRO 300 UNITS/3 ML VIAL SQ SCH ×3 (07:58→18:18)
--- NOTE | 2018-09-13 09:42 | Event Note ---
Date of Encounter: 09/13/18 Time of Encounter: 08:35 - Cardiology Event Note Denies any concerns or night. Awaiting catheterization today.
--- NOTE | 2018-09-13 09:52 | Internal Med Progress Note ---
Hospitalist Progress Note - Encounter Date of Encounter: 09/13/18 - Subjective Interval History: Patient is a 47-year-old male with past medical history significant for uncontrolled diabetes (hemoglobin A1c 10) hypertension, diabetes, hyperlipidemia, former [id number] smoker (quit 2011) and [employer] pacemaker (2011) who presents to the ER due to chest heaviness/palpitations. Patient's troponins were negative however he did have a positive stress test. Plans for left heart catheterization later this afternoon - Exam Vitals: Temp Pulse Resp BP Pulse Ox 97.9 F 92 16 136/82 97 09/13/18 07:52 09/13/18 07:52 09/13/18 07:52 09/13/18 07:52 09/13/18 07:52 - Assessment and Plan (1) Chest pain Current Visit: Yes Status: Acute Assessment and Plan: Patient with multiple risk factors including uncontrolled diabetes (hemoglobin A1c 10) hypertension, diabetes, hyperlipidemia, former [id number] smoker (quit 2011) and [employer] pacemaker (2011) who presents to the ER due to chest heaviness/palpitations. Troponins have been negative however patient found to have a positive stress test with perfusion imaging that was positive for ischemia Echocardiogram revealed LVEF of 50-55% with normal left ventricular diastolic dysfunction without any significant valvular dysfunction. Cardiology consulted with plans for a left heart catheterization later this afternoon (2) HTN (hypertension) Current Visit: Yes Status: Acute Assessment and Plan: Continue home meds (3) HLD (hyperlipidemia) Current Visit: Yes Status: Acute Assessment and Plan: Continue home meds (4) Diabetes Current Visit: Yes Status: Acute Assessment and Plan: Continue SSI DVT Prophylaxis: Heparin subcutaneous - Time Spent with Patient Total time spent is greater than 50% in coordination of care (as documented) at patient's floor/unit and/or counseling patient: Internal Medicine: Result - Labs CBC & Chem 7: 09/11/18 00:14 09/11/18 00:14 - ABG Interpretation ABG results: PT/INR, D-dimer PT 10.7 Seconds (9.4-12.1) 09/10/18 13:41 Consult Discharge Plan - Plan Referrals: Daniel Mcnally DO [Primary Care Provider] - 09/20/18 10:20 am (1) Chest pain Qualifiers: Chest pain type: unspecified Qualified Code(s): R07.9 - Chest pain, unspecified (2) HTN (hypertension) Qualifiers: Hypertension type: unspecified Qualified Code(s): I10 - Essential (primary) hypertension (3) HLD (hyperlipidemia) Qualifiers: Hyperlipidemia type: unspecified Qualified Code(s): E78.5 - Hyperlipidemia, unspecified (4) Diabetes Qualifiers: Chronic kidney disease stage: unspecified stage
[2018-09-13 12:36] LABS: Basophils % 0.5 %; Eosinophils # 0.2 K/mcL (0.0-0.6); Eosinophils % 3.2 %; Hemoglobin 14.4 g/dL (12.9-16.9); Immature Granulocytes % 0.7 % (0-4); Mean Corpuscular HGB Conc 33.5 g/dL (31.6-35.5); Mean Corpuscular Hemoglobin 28.6 pg (28.0-33.3); Mean Corpuscular Volume 85.5 fL (83.0-100.0); Mean Platelet Volume 10.1 fL (9.4-12.4); Monocytes # 0.8 K/mcL (0.0-1.3); Monocytes % 10.5 %; Neutrophils # 4.3 K/mcL (1.6-8.9); Platelet Count 256 K/mcL (140-400); Red Blood Count 5.03 M/mcL (4.19-5.50); Segmented Neutrophils % 58.1 %
[2018-09-13 12:52] LABS: BUN/Creatinine Ratio 17 (6-26); Blood Urea Nitrogen 12 mg/dL (6-20); Calcium 9.5 mg/dL (8.6-10.3); Carbon Dioxide 29 mEq/L (23-29); Chloride 104 mEq/L (98-107); Glucose 186 mg/dL (70-105); Osmolality,Calculated 287 (280-300); Potassium 4.3 mEq/L (3.5-5.1); Sodium 136 mEq/L (136-145); eGFR For Non-African Americans > 60 (> 60)
--- NOTE | 2018-09-13 12:56 | Pre-Sedation Evaluation ---
Pre-sedation evaluation - Pre-sedation checklist Date of procedure: 09/13/18 Procedure: [facility] Recent Vitals: Last Vital Signs Temp 97.8 F 09/13/18 11:55 Pulse 89 09/13/18 11:55 Resp 15 09/13/18 11:55 BP 142/87 09/13/18 11:55 Pulse Ox 97 09/13/18 11:55 H&P (including ROS) documented in medical record: Yes Previous reaction to sedatives/anesthetics: No Dietary Status: NPO after Midnight Airway Assessment: Patient can open mouth completely, TMJ function normal, Micrognathia (under-bite, receding chin) absent, Neck with adequate range of mot ion Dentition: No loose teeth or bridges Possible difficult airway: No ASA Classification *see protocol: CLASS II-Mild systemic disease Plan of Care: Pt appropriate candidate for procedure/moderate/conscious sedation, Risks/benefits of procedure/sedation discussed w/ patient/family Cardiac Registry (Cardio Only) - Functional Capacity Functional Capacity: >=4 METS with symptoms - Clincal Frailty Scale Clinical Frailty Scale: Managing Well
[2018-09-13] MEDS ORDERED: *HR* FentaNYL (PF) 100 MCG/2 ML VIAL ONE (13:09)
[2018-09-13] MEDS ORDERED: *HR* Midazolam HCl 2 MG/2 ML VIAL ONE (13:09)
[2018-09-13] MEDS ORDERED: Metoprolol XL (24 HR) Succ 25 MG TAB.ER.24H PO SCH (14:00)
--- NOTE | 2018-09-13 14:04 | Invasive Diagnostic Lab Proc ---
Name: Emile Witt Date of Study: 09/13/2018 Date: 1970 Ht: 70.1in Medical Record#: [id number] Age: 47 Wt: 253.53lb Gender: Male BSA: 2.31 Order #: [id number] BMI: 36.3 Physicians Procedure Physician: Lou Osuna MD, [facility] Referring MD: Referring MD: Staff Name Position [facility] Monitor 01:14 PM Alex Wilson RN Prison Warden 01:15 PM Costa Muriel RT (R) Scrub 01:15 PM Lou Ulrich RT (R) Scrub 01:15 PM Indications Indication Abnormal Test - Stress Procedures Performed Procedure L HRT ARTERY/VENTRICLE ANGIO Pre-Procedure Checklist Informed consent is complete signed and on chart. H&P is on chart. ID band is on and ID verified with patient. Patient NPO for procedure The procedure was described for the patient and questions were answered. Blood Pressure: 156/99 ECG is on chart. Plan of Care Patient will tolerate the procedure without complications. Adequate level of comfort will be maintained. Hemodynamics will remain stable Patient will recover from procedure without complications. Respiratory function will be maintained. Cardiac rhythm will remain stable. Patient temperature will be maintained. Patient and/or family have verbalized understanding of the procedure. Patient Education Chief Complaint/Reason for Test: Cardiac Cath Developmental Category: Adult (18-64 years) Developmentally Appropriate for Age: Yes Learning Barriers: None Education Needs: Procedure Education Method: Verbal Information Taught: Cardiac Cath Educational Evaluation: Able to repeat information Intravenous Access Time IV Size Location DC'd Fluid/Drip Rate Units RN 07:10 AM 18g 1 /" Patent On Arrival Rt Antecubital 0.9NaCl ml/hr Allergies No Known Allergies Vital Signs Time BP (mmHg) HR (bpm) O2 Sat. RR (bpm) LOC 156 / 99 92 96 % 16 5 = Fully awake and oriented or at pre-proc level 01:16 PM / % 5 = Fully awake and oriented or at pre-proc level 01:16 PM / % 4 = Oriented but drowsy 01:21 PM 144 / 87 96 96 % 01:26 PM 141 / 90 89 96 % 14 01:31 PM 148 / 88 84 97 % 22 01:36 PM 136 / 82 92 97 % 32 Procedural Medications Time Medication Dose Units Method Given By 01:15 PM Oxygen 2 L/min nasal cannula Alex Wilson RN 01:18 PM Versed 2 mg Intravenous Alex Wilson RN 01:18 PM Fentanyl 50 mcg Intravenous Alex Wilson RN 01:27 PM Benadryl 50 mg Intravenous Alex Wilson RN 01:28 PM Lidocaine 2% 19 ml Subcutaneous Lou Osuna MD, [facility] ASA Classification: CLASS II- Mild systemic disease (i.e. well-controlled diabetes, hypertension, asthma, cigarette smoking) Wendy Score Preprocedure Postprocedure Activity 2- Moves 4 extremities sustained head lift Activity 2- Moves 4 extremities sustained head lift Circulation 2- SBP +/= 20 points of pre-anesthetic level Circulation 2- SBP +/= 20 points of pre-anesthetic level Consciousness 2- Awake and alert oriented x 3 Consciousness 2- Awake and alert oriented x 3 O2 Saturation 2- Able to maintain O2 satruation of 92% on room air O2 Saturation 2- Able to maintain O2 satruation of 92% on room air Respiratory 2- Able to deep breathe and cough well Respiratory 2- Able to deep breathe and cough well Total Score 10 Total Score 10 Contrast Agent: Isovue Diagnostic Contrast: 66 ml Total Contrast: 66 ml Fluoro Dose: 24 mGy Procedure Log Time Note Enter By 01:14 PM Pt arrived to label paster 2 at 13:14 mm 01:15 PM Arminda aBiley RN Position: Monitor Time in: 13:14 01:15 PM Alex Wilson RN Position: Prison Warden Time in: 13:15 :15 PM Muriel Skelton RT (R) Position: Scrub Time in: 13:15 mm 01:15 PM Lou Ulrich RT (R) Position: Scrub Time in: 13:15 mm 01:15 PM Patient charges- Angio tray pack, Navilyst 3mm J, Pulse Oximetry and ACIST tubing and transducer 01:15 PM Case Delayed No oumm 01:15 PM Physician arrived 13:15 mm 01:15 PM Meet and greet completed 01:15 PM Sign in performed according to hospital policy. Informed consent was obtained. mm:15 PM Procedure start 13:15 mmers 01:15 PM CathStat 01:15 PM Vitals capture started with the following parameters, Patient=Adult, Interval=5 min, Initial Fvaxsnol=181 mmHg, Deflation Rate=5 mmHg, Cuff placed on Left Arm 01:15 PM Time: 13:15 Oxygen on at 2 L/min per nasal cannula by Alex Wilson RN oummleanna :16 PM ASA Class CLASS II- Mild systemic disease (i.e. well-controlled diabetes, hypertension, asthma, cigarette smoking) tsoumm:16 PM Hair removed from procedure site in procedure lab using clippers. Bilateral groin prepped with Chloraprep by Alex Wilson RN, then patient was draped. Skin intact. tsoummers :16 PM Time: 13:16 Patient comfortable and pain free: Yes mm:16 PM Time: 13:16LOC: 5 = Fully awake and oriented or at pre-proc level tsoummers :18 PM Recorded ECG: HR=79 Condition=Condition 1 :18 PM Time: 13:18 Versed 2 mg Intravenous Given by Alex Wilson RN saraleanna :18 PM Time: 13:18 Fentanyl 50 mcg Intravenous Given by Alex Wilson RN saraleanna :21 PM HR=96 bpm, TTDK=891/87 mmhg, SpO2=96.0 %, EtCO2=38 mmHg 01:25 PM Pressure channel 1 zeroed. 01:26 PM HR=89 bpm, SKFI=437/90 mmhg, SpO2=96.0 %, Resp=14 B/min, EtCO2=31 mmHg 01:27 PM Time out was performed according to hospital policy. Conscious sedation and anesthesia was achieved (see medication log with in this report above) PM Time: 13:27 Benadryl 50 mg Intravenous Given by Alex Wilson RN saraleanna PM Time: 13:28 19 ml Lidocaine 2% to right groin Subcutaneous Given by Lou Osuna MD, [facility] : PM Access obtained by percutaneous puncture. 5Fr 10cm [place] sheath placed in right Femoral artery. [id number] oumm: PM 0.035 145cm Navilyst 3mmJ wire [id number] mmers 01:29 PM 5Fr FL 4 catheter inserted over the wire [facility] tsoummers 01:30 PM Pressure channel 1 zeroed. 01:30 PM wire removed tsoummers 01:31 PM LCA angiography performed in multiple views. tsoummers 01:31 PM HR=84 bpm, SXTX=382/88 mmhg, SpO2=97.0 %, Resp=22 B/min, EtCO2=37 mmHg 01:31 PM Time: 13:16LOC: 4 = Oriented but drowsy tsoummers 01:31 PM Time: 13:16 Patient comfortable and pain free: Yes tsoummers 01:31 PM Recorded Pressure: Ao, HR=86, Condition=Condition 1 (Aorta) Ao 101/72/86 01:32 PM Catheter removed oumm 01:32 PM 5Fr FR 4 catheter inserted over the wire [facility] tsoummers 01:34 PM RCA angiography performed in multiple views. tsoummers 01:34 PM Recorded Pressure: Ao, HR=89, Condition=Condition 1 (Aorta) Ao 100/75/88 01:34 PM Coronary Dominance: right tsoummers 01:34 PM Catheter removed tsoumm 01:35 PM 5Fr Pigtail catheter inserted over the wire [facility] tsoummers 01:35 PM Catheter crossed the aortic valve and was selectively placed in the left ventricle. Pressures recorded on pullback for left heart catheterization. tsoummers 01:35 PM Bolus angiogram of left Ventricle complete: 8 ml/sec for a total of 24 mls tsoummers 01:36 PM HR=92 bpm, BFJU=233/82 mmhg, SpO2=97.0 %, Resp=32 B/min, EtCO2=38 mmHg 01:36 PM Pressure channel 1 zeroed. 01:36 PM Recorded Pressure: LV, HR=93, Condition=Condition 1 (Left Ventricle) LV 134/-12/4 01:36 PM Recorded Pressure: LV, Ao, HR=92, Condition=Condition 1 (Left Ventricle) LV 92/18/26, (Aorta) Ao 101/77/90 01:37 PM Catheter removed tsoummleanna 01:37 PM Bolus angiogram of right Femoral complete: 4 ml/sec for a total of 7 mls tsoummers 01:38 PM Procedure completed at 13:38 09/13/2018 [email or web address] 01:38 PM Did you address CARLEEN flow and Dominance? YesCoronary Dominance: right tsoummers 01:39 PM Sign out completed: Radiation Dose 170.18 mGy, 24.3 Gy/cm2 Fluoro Time: 1.1 Isovue 370 - 200ml contrast 66 ml given by Lou Osuna MD, [facility]. Complications: None. The patient was discharged out of the cardiac catheterization technologist in stable condition. Sedation minutes 20. Cardiac Rehab Consult needed: No. Confirmed administered medications: Yes tsoummers 01:39 PM Isovue 370 - 200ml,1 Bottle(s) used. tsoummers 01:39 PM Arterial sheath pulled, Mynx closure device used and was Successful [id number] S/N. tsoummers 01:39 PM Estimated Blood Loss: minimal tsoummers 01:39 PM Post ECG NSR tsoummers 01:39 PM Post Blood Pressure 136/82 tsoummers 01:39 PM Information taught Cardiac Cath and Mynx tsoummers 01:39 PM Education needs Procedure, Plan of Care, and Responsibilities of Patient in Care tsoummers 01:39 PM Learning barriers :None tsoummers 01:39 PM Education Methods Verbal tsoummers 01:39 PM Education evaluation Able to repeat information tsoummers 01:40 PM Plavix, Effient or Brilinta given No tsoummers 01:40 PM Delay to floor No tsoummers 01:40 PM Family placed in consult room. tsoummers 01:46 PM Lesion found in Proximal RCA. Pre Stenosis: 20 Pre CARLEEN Flow: tsoummers 01:46 PM Lesion found in Mid RCA. Pre Stenosis: 25 Pre CARLEEN Flow: tsoummers 01:47 PM Lesion found in Distal RCA. Pre Stenosis: 25 Pre CARLEEN Flow: tsoummers 01:47 PM Lesion found in Proximal LAD. Pre Stenosis: 30 Pre CARLEEN Flow: tsoummers 01:47 PM Lesion found in Proximal Circumflex. Pre Stenosis: 20 Pre CARLEEN Flow: tsoummers 01:47 PM Lesion found in Ramus. Pre Stenosis: 20 Pre CARLEEN Flow: tsoummers 01:47 PM Proximal Left Anterior Descending Coronary Artery with 30% stenosis. If graft is supplying this territory, 0 % stenosis. tsoummers 01:47 PM Circumflex, Obtuse Marginal, Left Posterior Descending, and Left Posterolateral Coronary Arteries with 20 % stenosis. If graft is supplying this area, 0 % stenosis tsoummers 01:47 PM Right Coronary, Right Posterior Descending Arteries with Right Posterolateral and Acute Marginal branches with 25 % stenosis. If graft is supplying this area, 0 % stenosis tsoummers 01:47 PM Ramus with 20% stenosis. If graft is supplying this area, 0 % stenosis tsoummers 01:48 PM Report given to Nova CLAYTON Pt taken to 3B Room #39. 13:48 tsoummers 01:48 PM Site status No bleeding/hematoma - Rt Groin as reported by Lou Ulrich RT (R) at 13:48 tsoummers 01:48 PM Opsite applied tsoummers 01:48 PM Patient out of room: 13:48 tsoummers Complications Complication None Hemodynamics Pressures Site Systolic/A Wave Diastolic/V Wave Mean AO 101 72 86 AO 100 75 88 LV 134 -12 4 LV 92 18 26 AO 101 77 90 Post Procedure Information Blood Pressure: 136/82 mmHg Rhythm: NSR Post procedural instructions were given Closure Device Time Device Success/Fail 09/13/2018 1:39:00 PM MynxGrip Successful Site Checks Time Location Status Staff Sheath In? Note 01:48 PM Rt Groin No bleeding/hematoma Lou Ulrich RT (R) Pulses Time Site Pre-Procedure Post-Procedure Note Bilateral DP & PT 1+ Bilateral radial 2+ Updated by Alex Wilson RN on 09/13/2018 1:49:11 PM electronically signed on 09/13/2018 1:52:29 PM with status of Final
--- NOTE | 2018-09-13 14:31 | Event Note ---
Date of Encounter: 09/13/18 Time of Encounter: 14:30 - Cardiology Event Note Per discussion with Dr. Lou Osuna, catheterization completed with mild nonobstructive disease with no intervention warranted. Cardiology signing off, patient prefers to follow-up with [place] [facility] to monitor [employer] pacemaker, will coordinate follow-up. All questions answered. Please re- consult as needed.
--- NOTE | 2018-09-13 18:00 | Discharge Summary ---
Orders not resulted at time of discharge: Pending orders 09/11/18 10:22 NM landon perf SPECT multi [NM] Routine Date of Encounter: 09/13/18 Time of Encounter: 13:00 - Discharge Diagnosis (1) Chest pain Priority: Primary Status: Acute Qualifiers: Chest pain type: unspecified Qualified Code(s): R07.9 - Chest pain, unspecified (2) HTN (hypertension) Priority: Primary Status: Acute Qualifiers: Hypertension type: unspecified Qualified Code(s): I10 - Essential (primary) hypertension (3) HLD (hyperlipidemia) Priority: Primary Status: Acute Qualifiers: Hyperlipidemia type: unspecified Qualified Code(s): E78.5 - Hyperlipidemia, unspecified (4) Diabetes Priority: Primary Status: Acute Qualifiers: Qualified Code(s): E11.9 - Type 2 diabetes mellitus without complications Hospital course: Patient is a 47-year-old male with past medical history significant for uncontrolled diabetes (hemoglobin A1c 10) hypertension, diabetes, hyperlipidemia, former 27-dugy-erpa smoker (quit 2011) and [employer] pacemaker (2011) who presents to the ER due to chest heaviness/palpitations. Patient reports a two-month history of intermittent fluttering in his chest which has progressively gotten worse in the last week. Patient reports that today while walking up steps at a graduation of experiencing substernal chest heaviness which radiated down his left arm with associated symptoms of nausea and shortness of breath. Patient reports that exertion made chest pressure worse and nothing gave any relief. Patient was concerned so decided come to the ER for evaluation. In the ER, first set of troponins were negative. He was found to have sinus tachycardia. Patient will be admitted to medical surgical observation unit for ACS rule out. Patient's troponins were negative however he did have a positive stress test. Cardiology was consulted and a left heart catheterization was done which showed minimal obstructive coronary arterial disease with a LVEF of 50%. Patient will be discharged to follow-up with primary care provider. - Time Spent with Patient Total time spent providing and/or coordinating discharge services: - Discharge Medications Prescriptions: Continued Ferrous Sulfate 325 mg PO DAILY Pioglitazone HCl/Metformin HCl [Pioglitazone-Metformin 15-850] 1 tab PO BID Lisinopril-HCTZ 10-12.5 [Prinzide 10-12.5] 1 tab PO DAILY Atorvastatin [Lipitor] 40 mg PO QPM Dulaglutide [Trulicity] 1.5 mg SQ TH Cholecalciferol (Vitamin D3) [Vitamin D3] 1,000 units PO DAILY Home Medications: Atorvastatin [Lipitor] 40 mg PO QPM 09/12/18 [History] Cholecalciferol (Vitamin D3) [Vitamin D3] 1,000 units PO DAILY 09/12/18 [History] Dulaglutide [Trulicity] 1.5 mg SQ TH 09/12/18 [History] Ferrous Sulfate 325 mg PO DAILY 09/12/18 [History] Lisinopril-HCTZ 10-12.5 [Prinzide 10-12.5] 1 tab PO DAILY 09/12/18 [History] Pioglitazone HCl/Metformin HCl [Pioglitazone-Metformin 15-850] 1 tab PO BID 09/12/18 [History] Allergies/Adverse Reactions: Allergy/AdvReac Type Severity Reaction Status Date / Time No Known Allergies Allergy Verified 02/12/17 17:54 Date of admission: 09/10/18 16:49 Primary care physician: Daniel Mcnally DO Consults: 09/11/18 18:02 Consult to Cardiology [CONS] Routine Comment: Consulting Provider: Shon Vizcarra Reason for Consult: Positive stress test Call Completed: Yes - Constitutional Vitals: Temp Pulse Resp BP Pulse Ox 97.8 F 87 16 152/86 94 09/13/18 11:55 09/13/18 16:30 09/13/18 16:30 09/13/18 16:30 09/13/18 16:30 Exam: Gen.: Nonacute distress, alert and oriented 3 Skin: Normal color - Patient Status Disposition: Home, Self-Care Condition: Good - Discharge Instructions Follow Up With: Cardiology [facility] [Provider Group] (office will call to schedule follow up appointment) Daniel Mcnally DO [Primary Care Provider] - 09/20/18 10:20 am Additional Instructions: RISK FACTORS: STOP SMOKING: If you smoke, STOP. Smoking or tobacco use significantly increases your risk of heart disease because nicotine causes the arteries to narrow or constrict. It also causes fats to stick to the artery. Your chances of having a heart attack are greatly increased if you continue to smoke. For more information, call the education line for smoking cessation 7-175-WKVVSJE EAT A LOW FAT/CHOLESTEROL/SODIUM DIET: This diet may help reduce your chances of having a heart attack. LIFTING: Avoid lifting anything more than 10 pounds for 5-7 days Prior to straining, laughing, sneezing and/or coughing, apply manual pressure directly over insertion site. ACTIVITY: You may walk or climb stairs as tolerated You can resume sexual activity as tolerated In general, you are encouraged to engage in a minimum of 30 minutes or more of moderate intensity physical activity, such as brisk walking, daily or at least 3-4 times weekly BATHING Do not submerge the site into water (bath tub, hot tub, swimming pool) for 1 week. This can be a source for infection into the blood stream. You may shower after 24 hours SITE CARE: After 24 hours, you may remove the dressing and leave the site open to air. Keep the site clean and dry. Clean gently and pat dry. You can expect bruising and tenderness that gradually resolve within a week or two. Return to work as instructed per your physician Resume driving as instructed per physician Keep all scheduled follow up appointments Resume medications as instructed IMPORTANT: If prescribed a Platelet Aggregation Inhibitor such as, Plavix, Brilinta or Effient: Duration of therapy is minimum one year These medications are often used in combination with Aspirin in prevention of future heart attacks Never discontinue unless consult with your Mortgage Closer STROKE (CVA) Risk factors for a stroke are: Age, cigarette smoking, diabetes, excessive alcohol consumption, family history, high blood pressure, overweight, physical inactivity, prior stroke, heart attack, diagnosis of carotid artery stenosis or other artery disease. Warning signs: Sudden numbness or weakness of the face, arm or leg; especially on one side of the body, sudden confusion, trouble speaking or understanding, sudden trouble seeing in one or both eyes, sudden trouble walking, dizziness, loss of balance or coordination, sudden severe headache with no cause. Call 911 or go to the Emergency Room. CONGESTIVE HEART FAILURE: If you have been diagnosed with Congestive Heart Failure (CHF) and your symptoms return, make an appointment with your physician Weigh yourself daily. Notify your physician if you have a weight gain of two or more pounds in one day or five or more pounds in one week. If you experience any difficulty breathing, please call 911 BLEEDING: Although the risk of bleeding is minimal, it can happen. If you have any bleeding from the site, apply firm pressure above the puncture site for 10-15 minutes. If the bleeding does not stop, continue manual pressure and call 911 Contact your physician if: You develop a fever greater than 101 degrees Fahrenheit Your site becomes reddened or has any drainage You have an increase in pain or burning at the site or if a large knot forms at the site. If you experience chest pain, shortness of breath, dizziness, or extreme tiredness, stop the activity and rest. Please notify your physicians office if you experience any of these symptoms and they are not relieved by rest please call 911!
[2018-09-13 18:54] VITALS: BP 131/80
[2018-09-16] MEDS ORDERED: Isovue-370 500 ML BOTTLE IVP ONE (14:35)
== END 2018-09-13 19:01 | disposition home or self-care (01) ==
LOC: EMEROOARM 13:33 → 3BNU 13:33 → SUATTDRO 16:49 → 3BNU 18:30
PROVIDERS: ADMIT Internal Medicine Nephrology; ATTEND Hospitalist